=== PATIENT | female | born 1965 | race Asian ===

== ENCOUNTER 2021-02-07 04:38 | Emergency (ER) | payer MEDICAID ==
[~2021-02-07] VITALS: Ht 160 cm; Wt 68.0 kg
[2021-02-07 04:45] VITALS: BP_SYST 197
--- NOTE | 2021-02-07 05:00 | NUR ---
Patient to ER bed 8 to gown for evaluation. Side rails up. Report given to LIZBET BHAGAT.
--- NOTE | 2021-02-07 05:30 | NUR ---
BENJAMIN Kumar at bedside examining patient.
[2021-02-07] MEDS ORDERED: DEXAMETHASONE SOD PHOSPHATE 10 MG/ML VIAL IM ONE (05:45)
[2021-02-07] MEDS ORDERED: DIPHENHYDRAMINE HCL 25 MG CAPSULE PO ONE (05:45)
--- NOTE | 2021-02-07 05:45 | NUR ---
Pt BIB family to ED seeking eval for suspected arthropod bites distributed throughout both extremities and trunk of several days duration with increasing pruritus. There has been no recent fevers vomiting or diarrhea. Patient recently vacationed and notes progressive symptoms since returning VSS no s/s of acute distress
[2021-02-07] MEDS ORDERED: cloNIDine HCL 0.1 MG TABLET PO ONE (06:00)
[2021-02-07] MEDS ORDERED: PRED20TA PO (06:13)
[2021-02-07] MEDS ORDERED: LISI-209 PO (06:13)
[2021-02-07] MEDS ORDERED: LORA10TA7 PO (06:13)
--- NOTE | 2021-02-07 06:27 | NUR ---
# 20 gauge angiocath placed to RT HAND. Use of asceptic technique. Opsite placed over site. Blood return noted. Blood for lab drawn from site. Flushed with 10 cc of normal saline. No evidence of infiltration noted. Patient tolerated well.
--- NOTE | 2021-02-07 06:44 | NUR ---
Dr. Tadeo bedside for pt eval
[2021-02-07 06:56] LABS: BASOPHILS % (AUTO) 0.8 % (0.0-2.0); EOSINOPHILS # (AUTO) 0.4 K/uL (0.0-0.4); EOSINOPHILS % (AUTO) 5.7 % (0.0-4.0); HEMATOCRIT 41.5 % (36-48); HEMOGLOBIN 13.9 g/dL (12.0-16.0); LYMPHOCYTES # (AUTO) 1.9 K/uL (1.0-5.5); MEAN CORPUSCULAR HEMOGLOBIN 29 pg (27-31); MEAN CORPUSCULAR HGB CONC 34 % (32-36); MEAN CORPUSCULAR VOLUME 88 fL (79.0-98.0); MONOCYTES # (AUTO) 0.4 K/uL (0.0-1.0); MONOCYTES % (AUTO) 5.8 % (1.7-9.3); NEUTROPHILS # (AUTO) 3.7 K/uL (1.8-7.7); NEUTROPHILS % (AUTO) 57.7 % (40.0-70.0); PLATELET COUNT (AUTO) 152 K/uL (130-430); RED BLOOD CELL COUNT(AUTO) 4.74 MIL/uL (4.2-6.2); RED CELL DISTRIBUTION WIDTH 13.8 % (9.0-15.0); WHITE BLOOD COUNT (AUTO) 6.4 K/uL (4.8-10.8)
--- NOTE | 2021-02-07 07:15 | NUR ---
Assumed care of patient, report received from OLAYINKA Sandhu. Pt currently resting in bed, no acute distress noted.
[2021-02-07 07:16] LABS: CREATININE 0.74 mg/dL (0.55-1.30); POTASSIUM 3.4 mmol/L (3.5-5.1)
--- NOTE | 2021-02-07 07:50 | NUR ---
Patient given written and verbal discharge instructions and verbalizes understanding. ER MD discussed with patient the results and treatment provided. Patient in stable condition. ID arm band removed. IV catheter removed intact and dressing applied, no active bleeding. Rx of Lisinopril, prednisone and loratadine given. Patient educated on pain management and to follow up with PMD. Pain Scale 0. Opportunity for questions provided and answered. Medication side effect fact sheet provided.
[2021-02-07 08:12] VITALS: BP_SYST 147
== END 2021-02-07 07:50 | disposition home or self-care (01) ==
LOC: SED 04:38
DX: S60.861A Insect bite (nonvenomous) of right wrist, initial encounter (principal); S60.862A Insect bite (nonvenomous) of left wrist, initial encounter; S20.469A Insect bite (nonvenomous) of unspecified back wall of thorax, initial encounter; I10 Essential (primary) hypertension; W57.XXXA Bitten or stung by nonvenomous insect and other nonvenomous arthropods, initial encounter; Y93.89 Activity, other specified; Y92.89 Other specified places as the place of occurrence of the external cause; Y99.8 Other external cause status
CPT/HCPCS: 36415; 80048; 85025; 96372; 99283; J1100; Q0163